=== PATIENT | female | born 1990 | race African-American/Black ===

== ENCOUNTER 2018-07-09 22:57 | Emergency (ER) | payer OTHER ==
[~2018-07-09] VITALS: Ht 167.6 cm; Wt 79.4 kg
== END 2018-07-09 23:52 | disposition home or self-care (01) ==
LOC: ER 22:57
DX: O26.891 Other specified pregnancy related conditions, first trimester (principal); Z34.01 Encounter for supervision of normal first pregnancy, first trimester; S61.222A Laceration with foreign body of right middle finger without damage to nail, initial encounter; W45.8XXA Other foreign body or object entering through skin, initial encounter; Y93.89 Activity, other specified; Y92.89 Other specified places as the place of occurrence of the external cause; Y99.8 Other external cause status